=== PATIENT | male | born 1955 | race Caucasian/White ===

== ENCOUNTER → 2020-05-10 | Outpatient (CLI) | payer BC ==
[~2020-05-10] MED LIST: AUGMENTIN 875875 MG PO; KLOR-CON M2020 ME1 PO; LASIX20 MG PO; ZOFRAN4 MG PO
== END | disposition home or self-care (01) ==
LOC: US 12:49
PROVIDERS: ATTEND Urology
DX: N28.89 Other specified disorders of kidney and ureter (principal)

== ENCOUNTER 2021-12-22 13:32 | Emergency (ER) | payer MEDICARE ==
[~2021-12-22] VITALS: Wt 56.7 kg
== END 2021-12-22 16:10 ==
LOC: ED 13:32
DX: I46.9 Cardiac arrest, cause unspecified (principal); Z79.899 Other long term (current) drug therapy